=== PATIENT | male | born 1980 | race Caucasian/White ===

== ENCOUNTER 2016-10-24 20:48 | Emergency (ER) | payer OTHER ==
[~2016-10-24] VITALS: Ht 167.6 cm; Wt 95.5 kg
[2016-10-24 22:05] LABS: INFLUENZA TYPE B NEGATIVE FOR TYPE B (NEGATIVE)
[2016-10-24 22:30] VITALS: BP 122/76
[2016-10-24] MEDS ORDERED: AZITHROMYCIN 250 MG TABLET PO ONE (22:30)
== END 2016-10-24 22:38 | disposition home or self-care (01) ==
LOC: EMS 20:58
DX: J32.9 Chronic sinusitis, unspecified (principal); J40 Bronchitis, not specified as acute or chronic; F41.9 Anxiety disorder, unspecified; F17.210 Nicotine dependence, cigarettes, uncomplicated; I10 Essential (primary) hypertension
CPT/HCPCS: 87804; 99284